=== PATIENT | female | born 1965 | race African-American/Black ===

== ENCOUNTER 2020-10-26 19:01 | Emergency (ER) | payer SELFPAY ==
--- NOTE | ~2020-10-26 | XR_ITS ---
XR knee RT 3V 10/26/2020 19:58 Indication: Right knee pain Procedure: 3 views right knee Comparison: No prior studies for comparison. Findings: Mild osteoarthritis of the right knee. No fracture or traumatic malalignment. No significan t joint effusion. No foreign bodies. Impression: 1: No acute bone or joint abnormality. Reviewed, dictated and finalized at location A. Impression: 1: No acute bone or joint abnormality.
[2020-10-26 19:07] VITALS: BP 181/97; PULSE 74; RESP 18; TEMP 36.6; O2SAT 100
--- NOTE | 2020-10-26 19:27 | ED_ITS ---
HPI - Extremity Problem General Chief complaint: Extremity Problem,Nontraumatic Stated complaint: R leg pain Time Seen by Provider: 10/26/20 19:26 History of Present Illness HPI Narrative: Right knee pain for quite some time. Located in popliteal fossa. Radiates up and down inside of the leg. Worsening in severity. Exacerbated by standing for long periods. No weakness, numbness, swelling, fever. She is concerned because she had a friend that recently following a DVT/PE. Review of Systems Review of Systems: All systems reviewed & are unremarkable except as noted in HPI and below Constitutional: Constitutional: Denies chills, Denies fever(s) and Denies weakness Eyes: Eyes: Reports no additional eye complaints Cardiovascular: Cardiovascular: Denies chest pain Respiratory: Respiratory: Denies dyspnea Gastrointestinal: Gastrointestinal: Denies abdominal pain Musculoskeletal: Musculoskeletal: Reports back pain Integumentary/Breasts: Skin/Breast: Denies rash Neurologic: Reports system reviewed and no additional complaints, except as documented [facility] Social History Social History Gender identity (if verbalized by the patient): Female Exam Const: General: no acute distress and alert Orientation/consciousness: patient oriented x3 HENMT: Head: normal to inspection Neck: Neck: normal visual inspection Resp: Effort & Inspection: normal respiratory effort Auscultation: clear to auscultation bilaterally Cardio: Rate: regular rate Rhythm: regular rhythm Skin: General skin exam: normal color Neuro: General: patient oriented x3, moves all extremities and CN's II-XI intact bilaterally Extrem: General: normal to inspection and no edema Course Vital Signs Vital signs: Vital Signs Temperature 36.6 C 10/26/20 19:07 Pulse Rate 74 10/26/20 19:07 Respiratory Rate 18 10/26/20 19:07 Blood Pressure 181/97 H 10/26/20 19:07 Pulse Oximetry 100 10/26/20 19:07 Temperature 37.0 C 10/26/20 22:03 Pulse Rate 76 10/26/20 22:03 Respiratory Rate 16 10/26/20 22:03 Blood Pressure 158/76 H 10/26/20 22:03 Pulse Oximetry 96 10/26/20 22:03 Procedures Other Procedure Procedure 1: Other Procedure: Bedside Ultrasound. Popliteal vein fully compressible Femoral vein evaluation limited by body habitus MDM - Extremity (Nontraumatic) MDM Narrative Medical decision making narrative: History most concerning for osteoarthritis. This was seen on x-ray. No DVT seen on very limited bedside US. D-dimer well with in normal range. DVT very unlikely I do not feel that any further evaluation is warranted at this time. Lab Data Attestation: I reviewed the patient's lab results. Labs: Lab Results 10/26/20 Range/Units 20:11 D-Dimer 0.27 (<0.48) ug/mL Discharge Plan Discharge Clinical Impression: Knee pain Patient Disposition: Home, Self-Care Condition: Stable Instructions: Knee Pain (ED) Follow-up/Referrals: Lola Chino MD [Primary Care Provider] -
[2020-10-26 21:16] LABS: D Dimer 0.27 ug/mL (<0.48)
[2020-10-26 22:03] VITALS: BP 158/76; PULSE 76; RESP 16; TEMP 37; O2SAT 96
== END 2020-10-26 22:07 | disposition home or self-care (01) ==
PROVIDERS: Emergency Provider Emergency Medicine; PCP Family Medicine
DX: M25.561 Pain in right knee (principal)
CPT/HCPCS: 36415; 73562; 85380; 99283

== ENCOUNTER 2021-06-21 23:00 | Emergency (ER) | payer OTHER, BC, SELFPAY ==
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
[2021-06-21 23:13] VITALS: BP 197/90; PULSE 77; RESP 18; TEMP 36.7; O2SAT 99
[2021-06-21 23:40] VITALS: PULSE 86; RESP 18; O2SAT 97
[2021-06-21 23:46] VITALS: O2SAT 100
[2021-06-21 23:48] VITALS: BP 232/92; O2SAT 100
[2021-06-22] VITALS: PULSE 75; RESP 16; O2SAT 98
[2021-06-22 00:02] VITALS: BP 220/95; PULSE 74; RESP 14; O2SAT 99
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
--- NOTE | 2021-06-22 00:09 | PC.NURSE ---
pt taken to radiology
[2021-06-22] MEDS: IBUPROFEN 600 MG TABLET PO (00:43)
== END 2021-06-22 02:12 | disposition home or self-care (01) ==
PROVIDERS: Emergency Provider Emergency Medicine; PCP Family Medicine
DX: S16.1XXA Strain of muscle, fascia and tendon at neck level, initial encounter (principal); S60.222A Contusion of left hand, initial encounter; S80.11XA Contusion of right lower leg, initial encounter; S00.83XA Contusion of other part of head, initial encounter; I10 Essential (primary) hypertension; V47.5XXA Car driver injured in collision with fixed or stationary object in traffic accident, initial encounter
CPT/HCPCS: 70486; 71046; 72125; 73130; 73564; 99284; A9270